=== PATIENT | female | born 1980 | race Caucasian/White ===

== ENCOUNTER 2016-06-10 04:38 | Emergency (ER) | payer BC ==
[2016-06-10] MEDS ORDERED: Ondansetron 4 MG Tab.DIS ONE (04:53)
[2016-06-10] MEDS ORDERED: Ketorolac 30 MG/ML SDV ONE (04:53)
[2016-06-10] MEDS ORDERED: SUMAtriptan 25 MG Tab PO ONE (05:00)
[2016-06-10] MEDS ORDERED: Meperidine PF 25 MG/ML Syringe ONE (05:22)
[2016-06-10] MEDS ORDERED: Meperidine PF 50 MG/ML Syringe ONE (05:23)
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
[2016-06-10 05:39] VITALS: BP 126/76
[2016-06-10] MEDS ORDERED: Ketorolac 30 MG/ML SDV IM ONE (05:43)
[2016-06-10] MEDS ORDERED: Meperidine PF 50 MG/ML Syringe IM ONE (05:44)
[2016-06-10] MEDS ORDERED: Meperidine PF 25 MG/ML Syringe IM ONE (05:44)
[2016-06-10] MEDS ORDERED: Ondansetron 4 MG Tab.DIS PO ONE (05:45)
== END 2016-06-10 06:12 | disposition home or self-care (01) ==
LOC: KA.ED 04:38
DX: G43.909 Migraine, unspecified, not intractable, without status migrainosus (principal); J45.909 Unspecified asthma, uncomplicated; F41.9 Anxiety disorder, unspecified; F32.9 Major depressive disorder, single episode, unspecified; G93.2 Benign intracranial hypertension; Z86.2 Personal history of diseases of the blood and blood-forming organs and certain disorders involving the immune mechanism; Z88.8 Allergy status to other drugs, medicaments and biological substances; Z91.010 Allergy to peanuts; Z98.890 Other specified postprocedural states; Z90.49 Acquired absence of other specified parts of digestive tract; Z87.891 Personal history of nicotine dependence
CPT/HCPCS: 96372; 99283; A9270; J1885; J2175

== ENCOUNTER 2016-10-22 14:18 | Emergency (ER) | payer BC ==
[2016-10-22] MEDS ORDERED: Ketorolac 30 MG/ML SDV IVPUSH ONE (14:43)
[2016-10-22] MEDS ORDERED: Sodium Chloride 0.9% 5 ML Syringe FLUSH PRN (14:43)
[2016-10-22] MEDS ORDERED: Ondansetron 4 MG/2 ML SDV IVPUSH ONE (14:43)
[2016-10-22] MEDS ORDERED: diphenhydrAMINE 50 MG/ML SDV IVPUSH ONE (14:43)
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
[2016-10-22 15:39] VITALS: BP 148/94
== END 2016-10-22 16:10 | disposition home or self-care (01) ==
LOC: KA.ED 14:18
DX: G43.009 Migraine without aura, not intractable, without status migrainosus (principal); J45.909 Unspecified asthma, uncomplicated; Z90.49 Acquired absence of other specified parts of digestive tract; Z91.010 Allergy to peanuts; Z88.8 Allergy status to other drugs, medicaments and biological substances; Z86.2 Personal history of diseases of the blood and blood-forming organs and certain disorders involving the immune mechanism; Z87.891 Personal history of nicotine dependence
CPT/HCPCS: 96374; 96375; 99283; J1200; J1885; J2405

== ENCOUNTER 2017-01-21 13:42 | Emergency (ER) | payer BC ==
[2017-01-21] MEDS ORDERED: Ondansetron 4 MG/2 ML SDV IVPUSH ONE (14:06)
[2017-01-21] MEDS ORDERED: diphenhydrAMINE 50 MG/ML SDV IVPUSH ONE (14:06)
[2017-01-21] MEDS ORDERED: Ketorolac 30 MG/ML SDV IVPUSH ONE (14:06)
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
[2017-01-21 14:45] VITALS: BP 152/92
== END 2017-01-21 15:00 | disposition home or self-care (01) ==
LOC: KA.ED 13:42
DX: G43.009 Migraine without aura, not intractable, without status migrainosus (principal); F41.0 Panic disorder [episodic paroxysmal anxiety]; F32.9 Major depressive disorder, single episode, unspecified; Z86.2 Personal history of diseases of the blood and blood-forming organs and certain disorders involving the immune mechanism; Z87.891 Personal history of nicotine dependence; Z88.8 Allergy status to other drugs, medicaments and biological substances; Z91.010 Allergy to peanuts
CPT/HCPCS: 96374; 96375; 99283; J1200; J1885; J2405

== ENCOUNTER 2017-04-26 22:33 | Emergency (ER) | payer BC ==
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
[2017-04-26] MEDS ORDERED: LORazepam 0.5 MG Tab PO ONE (23:17)
[2017-04-26] MEDS ORDERED: LORazepam 0.5 MG Tab ONE (23:19)
[2017-04-26] MEDS ORDERED: Nitroglycerin 0.4 MG Tab.SL SL ONE (23:57)
[2017-04-27 01:11] VITALS: BP 142/94
== END 2017-04-27 01:20 | disposition home or self-care (01) ==
LOC: KA.ED 22:33
DX: R00.2 Palpitations (principal); G93.2 Benign intracranial hypertension; Z88.8 Allergy status to other drugs, medicaments and biological substances; Z91.010 Allergy to peanuts; Z79.899 Other long term (current) drug therapy; Z87.891 Personal history of nicotine dependence
CPT/HCPCS: 36415; 84484; 99285; A9270

== ENCOUNTER 2018-08-05 08:03 | Emergency (ER) | payer BC ==
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
--- NOTE | 2018-08-05 08:59 | CR ---
[id number] RAD/RAD Chest PA And Lateral EXAM: RAD Chest PA And Lateral INDICATION: CHEST PAIN. COMPARISON: None. DISCUSSION: Cardiomediastinal silhouette is normal in size and contour. No infiltrate, effusion, pneumothorax, or edema. IMPRESSION: Negative examination of the chest. Michael Mathews MD 08/05/18 0858 Thank you for allowing us to participate in the care of your patient.
[2018-08-05 09:00] LABS: ANION GAP 11.4 mmol/L (5-15); CHLORIDE,CL 103 mmol/L (98-115); SODIUM,NA 140 mmol/L (136-145)
[2018-08-05 09:01] VITALS: BP 115/57
== END 2018-08-05 09:30 | disposition home or self-care (01) ==
LOC: KA.ED 08:03
DX: R07.89 Other chest pain (principal); F41.9 Anxiety disorder, unspecified; I10 Essential (primary) hypertension; J45.909 Unspecified asthma, uncomplicated; Z87.891 Personal history of nicotine dependence; Z88.8 Allergy status to other drugs, medicaments and biological substances; Z91.010 Allergy to peanuts; Z79.899 Other long term (current) drug therapy
CPT/HCPCS: 36415; 71046; 80053; 83880; 84484; 85025; 85379; 93005; 99285-25

== ENCOUNTER 2018-09-24 21:40 | Emergency (ER) | payer BC ==
[2018-09-24 21:52] VITALS: BP 127/81; PULSE 76
[2018-09-24] MEDS ORDERED: Sodium Chloride 0.9% 1,000 ML IV ONE (22:00)
[2018-09-24] MEDS ORDERED: Ketorolac 30 MG/ML SDV IVPUSH ONE (22:00)
[2018-09-24] MEDS ORDERED: Sodium Chloride 0.9% 10 ML Syringe FLUSH PRN (22:00)
[2018-09-24] MEDS ORDERED: Ondansetron 4 MG/2 ML SDV IVPUSH ONE (22:00)
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
[2018-09-24 23:43] LABS: BARBITURATE SCREEN,URINE NEGATIVE (NEGATIVE)
[2018-09-24 23:44] LABS: BENZODIAZEPINES SCREEN,URINE NEGATIVE (NEGATIVE); TCA SCREEN,URINE NEGATIVE (NEGATIVE); THC SCREEN,URINE 50 NG/ML NEGATIVE (NEGATIVE)
[2018-09-24 23:58] LABS: ANION GAP 10.8 mmol/L (5-15); CHLORIDE,CL 106 mmol/L (98-115); SODIUM,NA 142 mmol/L (136-145)
--- NOTE | 2018-09-25 07:20 | CT ---
[id number] CT/CT Head WO IV EXAM: NONCONTRAST HEAD CT INDICATION: Headache and drowsiness. COMPARISON: May 16, 2011. DISCUSSION: The ventricles and sulci are normal in size and configuration. The delvalle and white matter are normal in attenuation. No mass effect or midline shift. No acute hemorrhage or extra-axial fluid collection. No acute territorial infarct is identified. A limited look at the orbits and paranasal sinuses is unremarkable. IMPRESSION: 1. Negative exam. Mihai Herr MD 09/25/18 0719 Thank you for allowing us to participate in the care of your patient.
== END 2018-09-25 00:10 | disposition home or self-care (01) ==
LOC: KA.ED 21:40
DX: G44.209 Tension-type headache, unspecified, not intractable (principal); R53.83 Other fatigue; I10 Essential (primary) hypertension; Z91.010 Allergy to peanuts; Z88.8 Allergy status to other drugs, medicaments and biological substances; Z79.899 Other long term (current) drug therapy
CPT/HCPCS: 36415; 70450; 80048; 80305; 81001; 84443; 85025; 96361; 96374; 96375; 99284; J1885; J2405; J7030

== ENCOUNTER 2019-08-16 12:30 | Emergency (ER) | payer BC ==
[2019-08-16 12:46] VITALS: BP 130/89; PULSE 65
[2019-08-16] MEDS: Ketorolac 60 MG/2 ML SDV IM ONE (13:11)
[2019-08-16] MEDS: Ondansetron 4 MG Tab.DIS PO ONE (13:11)
[2019-08-16] MEDS: Cyclobenzaprine 10 MG Tab PO ONE (13:20)
[2019-08-16] MEDS: Ketorolac 60 MG/2 ML SDV ONE (13:22)
[2019-08-16] MEDS: Ondansetron 4 MG Tab.DIS ONE (13:22)
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
== END 2019-08-16 14:09 | disposition home or self-care (01) ==
LOC: KA.ED 12:30
DX: G43.119 Migraine with aura, intractable, without status migrainosus (principal); I10 Essential (primary) hypertension; J45.909 Unspecified asthma, uncomplicated; E66.9 Obesity, unspecified; Z68.41 Body mass index [BMI] 40.0-44.9, adult; Z91.010 Allergy to peanuts; Z88.8 Allergy status to other drugs, medicaments and biological substances; Z79.899 Other long term (current) drug therapy
CPT/HCPCS: 96372; 99283; A9270-GY; J1885

== ENCOUNTER 2019-11-30 17:41 | Emergency (ER) | payer BC ==
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
--- NOTE | 2019-11-30 18:37 | CR ---
[id number] RAD/RAD Chest PA or AP 1V EXAM: FRONTAL CHEST INDICATION: Shortness of breath and cough. COMPARISON: August 05, 2018. DISCUSSION: Lungs are mildly hypoinflated. There is mild elevation of the right hemidiaphragm. No acute infiltrates are identified. Normal heart size. IMPRESSION: 1. Mild elevation of the right hemidiaphragm with associated right base atelectasis. No definite acute infiltrates. Mihai Herr MD 11/30/19 [id number] Thank you for allowing us to participate in the care of your patient.
[2019-11-30 18:47] LABS: CHLORIDE,CL 103 mmol/L (98-115); SODIUM,NA 139 mmol/L (136-145)
[2019-11-30] MEDS ORDERED: Ketorolac 60 MG/2 ML SDV IM ONE (18:52)
[2019-11-30 19:24] VITALS: BP 118/83; PULSE 70
== END 2019-11-30 19:25 | disposition home or self-care (01) ==
LOC: KA.ED 17:41
DX: J11.1 Influenza due to unidentified influenza virus with other respiratory manifestations (principal); R07.1 Chest pain on breathing; I10 Essential (primary) hypertension; J45.909 Unspecified asthma, uncomplicated; E66.9 Obesity, unspecified; Z68.42 Body mass index [BMI] 45.0-49.9, adult; Z91.010 Allergy to peanuts; Z88.8 Allergy status to other drugs, medicaments and biological substances; Z79.899 Other long term (current) drug therapy
CPT/HCPCS: 36415; 71045; 80053; 81001; 83605; 85025; 87804; 96372; 99285; J1885; 99284

== ENCOUNTER 2020-04-17 21:53 | Emergency (ER) | payer BC ==
[2020-04-17] MEDS ORDERED: Ketorolac 60 MG/2 ML SDV IM ONE (22:00)
[2020-04-17 22:14] VITALS: BP 118/94; PULSE 74
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
--- NOTE | 2020-04-18 08:10 | CR ---
[id number] RAD/RAD Femur Left 2V Exam: RAD Femur Left 2V Indication:FALL, LEFT THIGH PAIN Comparison: No prior imaging for comparison. Discussion/Impression: No fracture. Femoroacetabular articulation is in normal alignment. Small os acetabulum. Michael Mathews MD 04/18/20 0809 Thank you for allowing us to participate in the care of your patient.
--- NOTE | 2020-04-18 08:25 | CR ---
[id number] RAD/RAD Knee Left 3V EXAM: RAD Knee Left 3V CLINICAL DATA: TRAUMA COMPARISON: NO PREVIOUS SIMILAR EXAM IS AVAILABLE. FINDINGS: No fracture or dislocation is seen. There is no radiopaque foreign body in the soft tissues. There is no air in the soft tissues. There is no cortical thickening or periosteal reaction either. IMPRESSION: NEGATIVE PLAIN FILM EXAM. Selwyn Chapman MD 04/18/20 0824 Thank you for allowing us to participate in the care of your patient.
== END 2020-04-17 23:05 | disposition home or self-care (01) ==
LOC: KA.ED 21:53
DX: S80.02XA Contusion of left knee, initial encounter (principal); S70.12XA Contusion of left thigh, initial encounter; J45.909 Unspecified asthma, uncomplicated; I10 Essential (primary) hypertension; E66.9 Obesity, unspecified; Z68.42 Body mass index [BMI] 45.0-49.9, adult; Z91.010 Allergy to peanuts; Z88.8 Allergy status to other drugs, medicaments and biological substances; Z79.899 Other long term (current) drug therapy; W01.0XXA Fall on same level from slipping, tripping and stumbling without subsequent striking against object, initial encounter; Y92.009 Unspecified place in unspecified non-institutional (private) residence as the place of occurrence of the external cause
CPT/HCPCS: 73562-LT; 96372; 99283; 99284; J1885

== ENCOUNTER 2020-07-25 08:26 | Emergency (ER) | payer BC ==
[2020-07-25] MEDS ORDERED: Aspirin 81 MG Tab.Chew ONE (08:35)
[2020-07-25] MEDS ORDERED: Aspirin 81 MG Tab.Chew PO ONE (08:45)
[2020-07-25] MEDS ORDERED: Sodium Chloride 0.9% 1,000 ML ONE (09:08)
[2020-07-25] MEDS ORDERED: Nitroglycerin 0.4 MG Tab.SL ONE (09:08)
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
[2020-07-25] MEDS ORDERED: Sodium Chloride 0.9% 1,000 ML IV ONE (09:12)
[2020-07-25] MEDS ORDERED: Nitroglycerin 0.4 MG Tab.SL SL PRN (09:13)
--- NOTE | 2020-07-25 09:41 | CR ---
[id number] RAD/RAD Chest PA or AP 1V EXAM: RAD Chest PA or AP 1V INDICATION: CHEST PAIN. ALSO, HAS A DIFFERENT PAIN WHEN I PALPATE COMPARISON: November 30, 2019. DISCUSSION: Cardiomediastinal silhouette is normal in size and contour. No infiltrate, effusion, pneumothorax, or edema. Age-indeterminate left-sided rib fractures. IMPRESSION: Age-indeterminate left-sided rib fractures. No pneumothorax. Dale Dunlap DO 07/25/20 0939 Thank you for allowing us to participate in the care of your patient.
[2020-07-25 09:45] LABS: ANION GAP 12.1 mmol/L (5-15); CHLORIDE,CL 105 mmol/L (98-107); SODIUM,NA 142 mmol/L (136-145)
[2020-07-25] MEDS ORDERED: Alum Hydrox/Mag Hydrox/Simeth 30 ML, Lidocaine 2% 15 ML PO ONE ×2 (10:03)
[2020-07-25 11:56] VITALS: BP 116/70; PULSE 58
== END 2020-07-25 12:30 | disposition home or self-care (01) ==
LOC: KA.ED 08:26
DX: R07.89 Other chest pain (principal); I10 Essential (primary) hypertension; J45.909 Unspecified asthma, uncomplicated; E66.9 Obesity, unspecified; Z79.899 Other long term (current) drug therapy; Z91.010 Allergy to peanuts; Z88.8 Allergy status to other drugs, medicaments and biological substances; Z68.41 Body mass index [BMI] 40.0-44.9, adult
CPT/HCPCS: 36415; 71045; 80048; 84484; 85025; 93005; 99284; 99285-25; A9270-GY; J7030

== ENCOUNTER 2020-09-29 09:12 | Emergency (ER) | payer BC ==
[2020-09-29] MEDS ORDERED: Alum Hydrox/Mag Hydrox/Simeth 30 ML, Lidocaine 2% 15 ML PO ONE ×2 (09:54)
--- NOTE | 2020-09-29 09:55 | CR ---
[id number] RAD/RAD Chest PA And Lateral EXAM: RAD Chest PA And Lateral CLINICAL DATA: CHEST PAIN COMPARISON: CORRELATION IS MADE WITH JULY 25, 2020 FINDINGS: The lungs are clear. The cardiomediastinal contour is normal. The regional bones and soft tissues are unremarkable. IMPRESSION: NO ACUTE PROCESS. Selwyn Chapman MD 09/29/20 0954 Thank you for allowing us to participate in the care of your patient.
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
[2020-09-29 10:21] LABS: ANION GAP 12.6 mmol/L (5-15); CHLORIDE,CL 104 mmol/L (98-107); SODIUM,NA 139 mmol/L (136-145)
[2020-09-29] MEDS ORDERED: Sodium Chloride 0.9% 50 ML IV SCH (10:45)
[2020-09-29] MEDS ORDERED: Iopamidol 755 Mg/ML 100 ML Bottle IV ONE (10:45)
--- NOTE | 2020-09-29 12:25 | CT ---
[id number] CT/CT Chest W IV EXAM: CT Chest W IV CLINICAL DATA: RIB FRACTURES, ETIOLOGY AND TIMING UNSURE; THEY WERE COMPARISON: None. FINDINGS: LUNGS: Clear. No pneumothorax or effusion. No endobronchial lesions. HEART AND GREAT VESSELS: Unremarkable. MEDIASTINUM AND LYMPHATICS: No mediastinal or hilar lymphadenopathy. UPPER ABDOMINAL ORGANS: Generalized hypodensity liver consistent with hepatic steatosis. BONES: Scattered changes of spondylosis in the spine. Subacute appearing fractures involving ribs 6 and 7 on the left posteriorly. No compelling evidence to suggest pathologic fractures. IMPRESSION: Subacute appearing fractures involving ribs 6 and 7 on the left posteriorly. No compelling evidence to suggest these are pathologic fractures. Dale Dunlap DO 09/29/20 1224 Thank you for allowing us to participate in the care of your patient.
[2020-09-29 14:13] VITALS: BP 108/69; PULSE 58
== END 2020-09-29 14:35 | disposition home or self-care (01) ==
LOC: KA.ED 09:12
DX: S22.42XG Multiple fractures of ribs, left side, subsequent encounter for fracture with delayed healing (principal); R51.9 Headache, unspecified; I11.0 Hypertensive heart disease with heart failure; I50.9 Heart failure, unspecified; J45.909 Unspecified asthma, uncomplicated; E66.9 Obesity, unspecified; Z68.41 Body mass index [BMI] 40.0-44.9, adult; Z88.8 Allergy status to other drugs, medicaments and biological substances; Z91.010 Allergy to peanuts; Z79.899 Other long term (current) drug therapy; X58.XXXD Exposure to other specified factors, subsequent encounter
CPT/HCPCS: 36415; 71046; 71260; 80053; 84484; 85025; 85379; 99285; A9270; Q9967; 93005; 99284

== ENCOUNTER 2021-02-16 06:55 | Emergency (ER) | payer BC ==
[2021-02-16 07:20] VITALS: BP 135/80; PULSE 78
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
== END 2021-02-16 08:15 | disposition home or self-care (01) ==
LOC: KA.ED 06:55
DX: J06.0 Acute laryngopharyngitis (principal); I11.0 Hypertensive heart disease with heart failure; I50.9 Heart failure, unspecified; E66.9 Obesity, unspecified; Z68.42 Body mass index [BMI] 45.0-49.9, adult; Z91.010 Allergy to peanuts; Z88.8 Allergy status to other drugs, medicaments and biological substances; Z79.899 Other long term (current) drug therapy
CPT/HCPCS: 87081; 87430; 99283

== ENCOUNTER 2024-07-23 13:16 | Emergency (ER) | payer BC ==
[2024-07-23] MEDS: Aspirin 81 MG Tab.Chew PO ONE (13:41)
[2024-07-23] MEDS: Nitroglycerin 0.4 MG Tab.SL SL PRN (13:43)
[2024-07-23 13:48] LABS: BASOPHILS ABSOLUTE AUTO 0.03 10^3/uL (0.00-0.10); BASOPHILS PERCENT AUTO 0.4 % (0.0-1.0); EOSINOPHILS ABSOLUTE AUTO 0.09 10^3/uL (0.10-0.30); EOSINOPHILS PERCENT AUTO 1.3 % (1.0-3.0); HEMATOCRIT 43.6 % (37.0-47.0); IMMATURE GRAN ABSOLUTE AUTO 0.02 10^3/uL (0.00-0.04); IMMATURE GRAN PERCENT AUTO 0.3 % (0.0-0.4); LYMPHOCYTES ABSOLUTE AUTO 1.94 10^3/uL (1.00-4.00); LYMPHOCYTES PERCENT AUTO 27.8 % (20.0-40.0); MEAN CORPUSCULAR HEMOGLOBIN 28.5 pg (27.0-31.0); MEAN CORPUSCULAR HGB CONC 32.1 g/dL (32.0-36.0); MEAN CORPUSCULAR VOLUME 88.8 fL (82.0-92.0); MONOCYTES ABSOLUTE AUTO 0.41 10^3/uL (0.10-0.80); MONOCYTES PERCENT AUTO 5.9 % (2.0-8.0); NEUTROPHILS PERCENT AUTO 64.3 % (50.0-70.0); PLATELET COUNT,PLT 259 10^3/uL (150-400); RED BLOOD CELL COUNT 4.91 10^6/uL (3.80-5.50); RED CELL DISTRIBUTION WIDTH 12.8 % (11.5-14.5); WHITE BLOOD CELL COUNT,WBC 6.99 10^3/uL (5.00-10.00)
[2024-07-23] MEDS ORDERED: Sodium Chloride 0.9% 10 ML Syringe FLUSH PRN (13:54)
[2024-07-23] MEDS: Ondansetron 4 MG/2 ML SDV IVPUSH ONE (14:02)
[2024-07-23 14:12] VITALS: BP 134/90; PULSE 87
[2024-07-23 14:18] LABS: B-TYPE NATRIURETIC PEPTIDE,BNP < 5 pg/mL (0-100)
[2024-07-23 14:19] LABS: ALANINE AMINOTRANSFERASE,ALT 47 U/L (14-63); ALBUMIN 3.71 g/dL (3.40-5.00); ALKALINE PHOSPHATASE 94 U/L (46-116); ANION GAP 13.9 mmol/L (5-15); ASPARTATE AMNIOTRANSFERASE,AST 26 U/L (15-37); BILIRUBIN TOTAL 0.4 mg/dL (0.2-1.0); BLOOD UREA NITROGEN,BUN 13 mg/dL (7-18); CALCIUM 9.3 mg/dL (8.7-10.3); CARBON DIOXIDE,CO2 27.6 mmol/L (21.0-32.0); CHLORIDE,CL 102 mmol/L (98-107); CREATININE 0.68 mg/dL (0.51-1.17); EST CRCL DRUG DOSING (CG) 91.17 mL/min; ESTIMATED GFR 110 mL/min (>=60); GLUCOSE RANDOM 127 mg/dL (70-140); POTASSIUM,K 3.5 mmol/L (3.5-5.1); PROTEIN TOTAL,TP 7.3 g/dL (6.4-8.2); SODIUM,NA 140 mmol/L (136-145)
== END 2024-07-23 15:04 | disposition home or self-care (01) ==
LOC: KA.ED 13:23
DX: R07.89 Other chest pain (principal); R51.9 Headache, unspecified; R42 Dizziness and giddiness; F41.9 Anxiety disorder, unspecified; I11.0 Hypertensive heart disease with heart failure; I50.9 Heart failure, unspecified; E66.9 Obesity, unspecified; Z68.43 Body mass index [BMI] 50.0-59.9, adult; J45.909 Unspecified asthma, uncomplicated; Z79.899 Other long term (current) drug therapy; Z90.49 Acquired absence of other specified parts of digestive tract; Z90.710 Acquired absence of both cervix and uterus; Z91.010 Allergy to peanuts; Z88.8 Allergy status to other drugs, medicaments and biological substances
CPT/HCPCS: 36415; 71045; 80053; 83880; 84484; 85025; 93005; 96374; 99285-25; A9270-GY; J2405

== ENCOUNTER 2024-07-24 20:19 | Emergency (ER) | payer BC ==
[2024-07-24] MEDS: Ondansetron 4 MG/2 ML SDV IVPUSH ONE (20:41)
[2024-07-24] MEDS: Ketorolac 30 MG/ML SDV IVPUSH ONE (20:41)
[2024-07-24] MEDS: Sodium Chloride 0.9% 1,000 ML IV ONE (20:41)
[2024-07-24] MEDS: diphenhydrAMINE 50 MG/ML SDV IVPUSH ONE (20:41)
[2024-07-24 20:58] LABS: BASOPHILS ABSOLUTE AUTO 0.03 10^3/uL (0.00-0.10); BASOPHILS PERCENT AUTO 0.4 % (0.0-1.0); EOSINOPHILS ABSOLUTE AUTO 0.11 10^3/uL (0.10-0.30); EOSINOPHILS PERCENT AUTO 1.6 % (1.0-3.0); HEMATOCRIT 47.2 % (37.0-47.0); HEMOGLOBIN 15.2 g/dL (12.0-16.0); IMMATURE GRAN ABSOLUTE AUTO 0.02 10^3/uL (0.00-0.04); IMMATURE GRAN PERCENT AUTO 0.3 % (0.0-0.4); LYMPHOCYTES ABSOLUTE AUTO 1.61 10^3/uL (1.00-4.00); LYMPHOCYTES PERCENT AUTO 23.7 % (20.0-40.0); MEAN CORPUSCULAR HEMOGLOBIN 28.6 pg (27.0-31.0); MEAN CORPUSCULAR HGB CONC 32.2 g/dL (32.0-36.0); MEAN CORPUSCULAR VOLUME 88.9 fL (82.0-92.0); MEAN PLATELET VOLUME 10.4 fL (7.4-10.4); MONOCYTES ABSOLUTE AUTO 0.25 10^3/uL (0.10-0.80); MONOCYTES PERCENT AUTO 3.7 % (2.0-8.0); NEUTROPHILS ABSOLUTE AUTO 4.76 10^3/uL (2.50-7.00); NEUTROPHILS PERCENT AUTO 70.3 % (50.0-70.0); PLATELET COUNT,PLT 261 10^3/uL (150-400); RED BLOOD CELL COUNT 5.31 10^6/uL (3.80-5.50); RED CELL DISTRIBUTION WIDTH 12.7 % (11.5-14.5); WHITE BLOOD CELL COUNT,WBC 6.78 10^3/uL (5.00-10.00)
[2024-07-24 21:15] LABS: ALANINE AMINOTRANSFERASE,ALT 50 U/L (14-63); ALBUMIN 3.74 g/dL (3.40-5.00); ALKALINE PHOSPHATASE 106 U/L (46-116); ANION GAP 12.7 mmol/L (5-15); ASPARTATE AMNIOTRANSFERASE,AST 27 U/L (15-37); BILIRUBIN TOTAL 0.3 mg/dL (0.2-1.0); BLOOD UREA NITROGEN,BUN 10 mg/dL (7-18); CALCIUM 9.4 mg/dL (8.7-10.3); CHLORIDE,CL 102 mmol/L (98-107); CREATININE 0.66 mg/dL (0.51-1.17); ESTIMATED GFR 111 mL/min (>=60); GLUCOSE RANDOM 163 mg/dL (70-140); POTASSIUM,K 3.7 mmol/L (3.5-5.1); PROTEIN TOTAL,TP 7.7 g/dL (6.4-8.2); SODIUM,NA 141 mmol/L (136-145)
[2024-07-25 01:39] VITALS: BP 137/88; PULSE 80
== END 2024-07-24 22:40 | disposition home or self-care (01) ==
LOC: KA.ED 20:19
DX: M94.0 Chondrocostal junction syndrome [Tietze] (principal); R51.9 Headache, unspecified; I11.0 Hypertensive heart disease with heart failure; I50.9 Heart failure, unspecified; E66.9 Obesity, unspecified; J45.909 Unspecified asthma, uncomplicated; Z88.8 Allergy status to other drugs, medicaments and biological substances; Z91.010 Allergy to peanuts; Z79.899 Other long term (current) drug therapy; Z79.51 Long term (current) use of inhaled steroids; Z90.49 Acquired absence of other specified parts of digestive tract; Z90.710 Acquired absence of both cervix and uterus; Z68.43 Body mass index [BMI] 50.0-59.9, adult
CPT/HCPCS: 36415; 71045; 80053; 84484; 85025; 93005; 93010; 96361; 96374; 96375; 99284; 99285-25; J1200; J1885; J2405; J7030